=== PATIENT | female | born 1995 | race African-American/Black ===

== ENCOUNTER 2017-06-20 00:48 | Emergency (ER) | payer OTHER ==
[~2017-06-20] VITALS: Ht 177.8 cm; Wt 136.5 kg
[~2017-06-20 00:48] MED LIST: PREN27TA7
[2017-06-20 01:01] VITALS: BP 148/94
== END 2017-06-20 04:30 | disposition left against medical advice (07) ==
LOC: ER 00:48
DX: R51 Headache (principal); H53.8 Other visual disturbances; Z53.21 Procedure and treatment not carried out due to patient leaving prior to being seen by health care provider
CPT/HCPCS: 81025

== ENCOUNTER 2018-10-05 23:03 | Emergency (ER) | payer OTHER ==
[~2018-10-05] VITALS: Ht 177.8 cm; Wt 169.6 kg
[2018-10-05 23:16] VITALS: BP 191/92
[2018-10-06 00:05] LABS: Basophils # (auto) 0.1 uL; Eosinophils # (auto) 0.2 uL; Eosinophils % (auto) 2.5 % (0.0-7.0); Hematocrit 40.7 % (36.0-46.0); Hemoglobin 13.3 g/dL (12.2-16.2); Lymphocytes # (auto) 2.9 uL; Lymphocytes % (auto) 41.7 % (10.0-50.0); Mean Corpuscular Hgb Conc. 32.6 g/dL (32.0-36.0); Mean Corpuscular Volume 82.7 fL (80.0-100.0); Monocytes # (auto) 0.6 uL; Monocytes % (auto) 8.1 % (0.0-12.0); Neutrophils # (auto) 3.3 uL; Neutrophils % (auto) 46.7 % (37.0-80.0); Nucleated Red Blood Cells % 0.1 %; Platelet Count (auto) 227 10^3/uL (140-450); Red Blood Cells 4.93 10^6/uL (4.0-5.20); Red Cell Distribution Width 13.9 % (11.8-14.3)
[2018-10-06 00:16] LABS: Alanine Aminotransferase 24 U/L (13-56); Albumin 3.5 g/dL (3.4-5.0); Anion Gap 8 (5-15); Aspartate Aminotransferase 17 U/L (15-37); BUN/Creatinine Ratio 6.5; Blood Urea Nitrogen 6 mg/dL (7-18); Carbon Dioxide 24 mmol/L (21-32); Chloride 108 mmol/L (98-107); GFR African American 96 mL/min; GFR Non-African American 80 mL/min; Glucose 79 mg/dL (74-106); Potassium 3.9 mmol/L (3.5-5.1); Sodium 140 mmol/L (136-145)
[2018-10-06 00:21] LABS: Alkaline Phosphatase 69 U/L (45-117); Bilirubin, Total 0.2 mg/dL (0.2-1.0); Total Protein 7.7 g/dL (6.4-8.2)
[2018-10-06 00:25] LABS: INR < 0.93 (0.9-1.15); Partial Thromboplastin Time 27.9 sec (23.64-32.05)
== END 2018-10-06 02:07 | disposition left against medical advice (07) ==
LOC: ER 23:08
DX: R07.89 Other chest pain (principal); Z53.21 Procedure and treatment not carried out due to patient leaving prior to being seen by health care provider
CPT/HCPCS: 36415; 71045; 80053; 84484; 85025; 85610; 85730; 93005

== ENCOUNTER 2020-01-13 15:24 | Emergency (ER) | payer OTHER ==
[~2020-01-13] VITALS: Ht 177.8 cm; Wt 194.3 kg
[2020-01-13 16:38] LABS: Urine Bacteria FEW /hpf (None Seen); Urine Blood Negative /uL (Negative); Urine Specific Gravity 1.012 (1.001-1.035); Urine WBC 25 /hpf (0 - 5)
[2020-01-13 17:40] LABS: Basophils # (auto) 0 10 ^3/uL (0-0.2); Basophils % (auto) 0.3 % (0.0-2.0); Eosinophils # (auto) 0.1 10 ^3/uL (0-0.8); Eosinophils % (auto) 2.9 % (0.0-7.0); Hematocrit 39.3 % (36.0-46.0); Hemoglobin 12.7 g/dL (12.2-16.2); Lymphocytes # (auto) 1.5 10 ^3/uL (0.4-5.4); Lymphocytes % (auto) 36.5 % (10.0-50.0); Mean Corpuscular Hemoglobin 26.4 pg (28.0-32.0); Mean Corpuscular Hgb Conc. 32.3 g/dL (32.0-36.0); Mean Corpuscular Volume 81.7 fL (80.0-100.0); Monocytes # (auto) 0.3 10 ^3/uL (0-1.3); Monocytes % (auto) 8.1 % (0.0-12.0); Neutrophils # (auto) 2.1 10 ^3/uL (1.6-8.6); Neutrophils % (auto) 52.2 % (37.0-80.0); Nucleated Red Blood Cells % 0.2 %; Platelet Count (auto) 235 10^3/uL (140-450); Red Cell Distribution Width 14.3 % (11.8-14.3); White Blood Cell 4.1 10^3/uL (4.4-10.8)
[2020-01-13 17:56] LABS: Calcium 8.7 mg/dL (8.5-10.1); Chloride 106 mmol/L (98-107); INR 0.96 (0.9-1.15); Partial Thromboplastin Time 27.7 sec (23.0-31.2); Potassium 3.9 mmol/L (3.5-5.1); Sodium 138 mmol/L (136-145)
[2020-01-13 18:07] LABS: Alanine Aminotransferase 35 U/L (13-56); Albumin 3.6 g/dL (3.4-5.0); Alkaline Phosphatase 72 U/L (45-117); Anion Gap 4 (5-15); Aspartate Aminotransferase 32 U/L (15-37); Bilirubin, Total 0.2 mg/dL (0.2-1.0); Blood Urea Nitrogen 8 mg/dL (7-18); Carbon Dioxide 28 mmol/L (21-32); GFR African American 99 mL/min; GFR Non-African American 82 mL/min; Glucose 93 mg/dL (74-106); Total Protein 7.4 g/dL (6.4-8.2)
[2020-01-13 18:57] VITALS: BP 168/98
== END 2020-01-13 19:05 | disposition home or self-care (01) ==
LOC: ER 15:24
DX: R07.89 Other chest pain (principal); K21.9 Gastro-esophageal reflux disease without esophagitis; N39.0 Urinary tract infection, site not specified; I10 Essential (primary) hypertension
CPT/HCPCS: 36415; 71046; 80053; 81001; 81025; 84484; 85025; 85379; 85610; 85730; 93005

== ENCOUNTER 2020-08-05 12:03 | Emergency (ER) | payer SELFPAY ==
[~2020-08-05] VITALS: Ht 175.3 cm; Wt 167.8 kg
[2020-08-05 12:36] VITALS: BP 178/101
[2020-08-05] MEDS ORDERED: cefTRIAXone 1GM/50ML D5W 50 ML IV ONE ×2 (13:00)
[2020-08-05] MEDS ORDERED: KETOROLAC TROMETH 30 MG/ML 1ML VIAL IV ONE (13:00)
[2020-08-05] MEDS ORDERED: methylPREDNISolone SOD SUCC 125 MG/2 ML VL IV ONE (13:00)
== END 2020-08-05 14:06 | disposition home or self-care (01) ==
LOC: ER 12:03
DX: J03.00 Acute streptococcal tonsillitis, unspecified (principal); E66.01 Morbid (severe) obesity due to excess calories; I10 Essential (primary) hypertension; Z68.43 Body mass index [BMI] 50.0-59.9, adult; Z79.899 Other long term (current) drug therapy
CPT/HCPCS: 87880; 96365; 96375; 99284; J0696; J1885; J2930

== ENCOUNTER 2020-08-06 11:10 | Emergency (ER) | payer SELFPAY ==
[~2020-08-06] VITALS: Ht 175.3 cm; Wt 171.9 kg
[2020-08-06] MEDS ORDERED: methylPREDNISolone SOD SUCC 125 MG/2 ML VL IM ONE (11:45)
[2020-08-06] MEDS ORDERED: cefTRIAXone SOD 1,000 MG VL IM ONE (11:45)
[2020-08-06 11:47] VITALS: BP 159/92
== END 2020-08-06 12:06 | disposition home or self-care (01) ==
LOC: ER 11:10
DX: J03.00 Acute streptococcal tonsillitis, unspecified (principal); I10 Essential (primary) hypertension; Z79.899 Other long term (current) drug therapy
CPT/HCPCS: 96372; 99284; J0696; J2930

== ENCOUNTER 2024-10-01 21:48 | Emergency (ER) | payer MEDICAID ==
[~2024-10-01] VITALS: Ht 180.3 cm; Wt 177.0 kg
[2024-10-01 21:48] VITALS: BP 184/103; PULSE 86; RESP 18; TEMP 98.3; O2SAT 100
[~2024-10-01 21:48] MED LIST changes: +IBUP-1456 PO
--- NOTE | 2024-10-01 23:18 | DVH ---
CLINICAL INDICATION: left wrist pain TECHNIQUE: XY L WRIST 3+ VIEW XRAY Comparison: XY L WRIST 3+ VIEW XRAY on DOS: 06/30/23 FINDINGS/IMPRESSION: : Stabilization pins within the carpal bones without evidence of gross complication. The scaphoid is di minished and disrupted, likely secondary to remote trauma. No definite evidence of acute osseous abnormality. Soft tissues are unremarkable.
[2024-10-02] MEDS ORDERED: IBUP-1456 PO (01:21)
--- NOTE | 2024-10-02 01:22 | ED.PDOC ---
Musculoskeletal HPI Comments 29 year old female presents to ER with complaints of left wrist pain x 4 days. Patient states she had surgery/pins placed to left wrist from a scaphoid fracture at [facility] in June 2023 and x 4 days has been experiencing left wrist pain. Notes that she was suppose to f/u to have the pins removed in left wrist in September 2023 but never did. She rates her current pain an 8/10 to left wrist with intermittent numbness/tingling to all fingers of left hand. Denies any recent falls/injury, swelling, fever or any further symptoms/complaints Chief Complaint: Upper Extremity Time Seen by MD: 22:32 Primary Care Provider: RENE Reviewed Notes: Nurses Notes, Medications, Allergies Allergies: Coded Allergies: NO KNOWN ALLERGIES (Unverified , 05/05/14) Home Meds Active Scripts Ibuprofen (Ibuprofen) 800 Mg Tab, 1 TAB PO TID PRN, #30 TAB 0 Refills Prov:MARC PAYAN 10/02/24 Ibuprofen (Ibuprofen) 800 Mg Tab, 1 TAB PO TID, #30 TAB Prov:ALEXIS MOSQUEDA 06/30/23 Reported Medications Vit W/ Ferrous Fumara () 1 Tab Tab 10/31/12 Information Source: Patient Mode of Arrival: Ambulatory Past Medical History PAST MEDICAL HISTORY: HTN Surgical History (Other): Left wrist surgery/pins placed due to scaphoid fracture in June 2023 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[employer] 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 [facility] 09-13-24 Family History Family History: Unknown Social History Smoker: Non-Smoker Alcohol: Denies ETOH Use Drugs: Marijuana Lives In: Home Constitutional: denies: chills, diaphoresis, fatigue, fever, malaise, sweats, weakness, others EENTM: denies: blurred vision, double vision, ear bleeding, ear discharge, ear drainage, ear pain, ear ringing, eye pain, eye redness, hearing loss, mouth pain, mouth swelling, nasal discharge, nose bleeding, nose congestion, nose pain, photophobia, tearing, throat pain, throat swelling, voice changes, others Respiratory: denies: cough, hemoptysis, orthopnea, SOB at rest, shortness of breath, SOB with excertion, stridor, wheezing, others Cardiovascular: denies: chest pain, dizzy spells, diaphoresis, Dyspnea on exertion, edema, irregular heart beat, left arm pain, lightheadedness, palpitations, PND, syncope, others Gastrointestinal: denies: abdomen distended, abdominal pain, blood streaked bowels, constipated, diarrhea, dysphagia, difficulty swallowing, hematemesis, melena, nausea, poor appetite, poor fluid intake, rectal bleeding, rectal pain, vomiting, others Genitourinary: denies: abnormal vagina bleeding, burning, dyspareunia, dysuria, flank pain, frequency, hematuria, incontinence, pain, , vagina discharge, urgency, others Neurological: reports: others (As stated in HPI) Musculoskeletal: reports: others (As stated in HPI) Integumetry: denies: bruises, change in color, change in hair/nails, dryness, laceration, lesions, lumps, rash, wounds, others Allergic/Immunocompromised: denies: Difficulty Healing, Frequent Infections, Hives, Itching, others Hematologic/Lymphatic: denies: anemia, blood clots, easy bleeding, easy bruising, swollen glands, others Endocrine: denies: excessive hunger, excessive sweating, excessive thirst, excessive urination, flushing, intolerance to cold, intolerance to heat, unexplained weight gain, unexplained weight loss, others Psychiatric: denies: anxiety, bipolar disorder, depression, hopeless, panic disorder, schizophrenia, sleepless, suicidal, others Physical Exam General Appearance: No Apparent Distress, Obese HEENT: PERRL/EOMI Neck: Full Range of Motion, Non-Tender, Normal Respiratory: Chest Non-Tender, Lungs Clear, No Accessory Muscle Use, No Respiratory Distress, Normal Breath Sounds Cardiovascular: No Murmur, No Gallop, Regular Rate/Rhythm Breast Exam: Deferred Gastrointestinal: NOT DONE Genitalia: Deferred Pelvic: Deferred Rectal: Deferred Extremities: Normal capillary refill, Normal range of motion Musculoskeletal : Extremity Location: Wrist (TTP centralized to left wrist noted. Scar noted centralized to left wrist from prior left wrist surgery. No signs of infection noted. Patient able to fully move all fingers of left hand. Pulses intact) Neurologic: Alert, No Motor Deficits, Normal Affect, Normal Mood, No Sensory Deficits Cerebellar Function: Normal Reflexes: Normal Skin: Dry, Normal Color, Warm Peripheral Pulses: 2+ Radial (R), 2+ Radial (L), 2+ Brachial (R), 2+ Brachial (L) Lymphatic: No Adenopathy Was a procedure done? Was a procedure done?: No Sedation Sedation?: No Differential Diagnosis EXT Differential Diagnosis: Cellulitis, Deep Vein Thrombosis, Fracture, Dislocation, Neurovascular injury X-Ray, Labs, Meds, VS Vital Signs Date Time Temp Pulse Resp B/P (MAP) Pulse Ox O2 Delivery O2 Flow Rate FiO2 10/01/24 21:48 98.3 86 18 184/103 (130) 100 98.3 PATIENT: PEGGY SEVERINO CHE YANNEACCT: [id number]: [id number] : 1995 LOC: ER ROOM / BED: / AGE / SEX: 29 / F ADM STATUS: REG ER SERVICE 31 ORDERING PHYSICIAN: MARC PAYAN PROCEDURE(s): LWRI - L WRIST 3+ VIEW XRAY REASON: left wrist pain ORDER NUMBER(s): [id number], ACCESSION NUMBER(s): [id number] CLINICAL INDICATION: left wrist pain TECHNIQUE: XY L WRIST 3+ VIEW XRAY Comparison: XY L WRIST 3+ VIEW XRAY on DOS: 06/30/23 FINDINGS/IMPRESSION: : Stabilization pins within the carpal bones without evidence of gross complication. The scaphoid is diminished and disrupted, likely secondary to remote trauma. No definite evidence of acute osseous abnormality. Soft tissues are unremarkable. ATED BY: WYATT FUENTES MD DICTATED DATE/TIME: 10/01/242314 SIGNED BY: WYATT FUENTES MD SIGNED DATE/TIME: 10/01/242314 CC: Left wrist x-ray reviewed Toradol 60 mg IM ordered Patient neurovascularly intact and reported improvement in symptoms prior to discharge Advised to follow up with PCP and orthopedics in 1-2 days Patient verbalized understanding and agreeable with current plan of care Advised to return to ER immediately if symptoms worsen Images Reviewed?: Images reviewed and evaluated by me Time of 1ST Reevaluation: 01:04 Reevaluation 1ST: N/A Patient Education/Counseling: Diagnosis, Treatment, Prognosis, Need For Follow Up Family Education/Counseling: No Family Present Departure 1 Departure Time of Disposition: 01:20 Impression: Primary Impression: Postoperative pain of extremity Disposition: 01 HOME / SELF CARE / HOMELESS Condition: Stable e-Prescriptions Ibuprofen (Ibuprofen) 800 Mg Tab 1 TAB PO TID PRN, #30 TAB 0 Refills Prov: MARC PAYAN 10/02/24 Discharged With: Friend Critical Care Note Critical Care Time?: No Stability Stability form required: No Heart Score Heart Score: Heart Score Response (Comments) Value History N/A 0 EKG N/A 0 Age N/A 0 Risk Factors N/A 0 Troponin N/A 0 Total 0 MARC PAYAN Oct 02, 2024 01:22
[2024-10-02] MEDS ORDERED: KETOROLAC TROMETH 60MG/2ML VIAL IM ONE (01:30)
== END 2024-10-02 05:05 | disposition home or self-care (01) ==
LOC: ER 21:48
DX: G89.18 Other acute postprocedural pain (principal); F12.90 Cannabis use, unspecified, uncomplicated; I10 Essential (primary) hypertension; Z98.890 Other specified postprocedural states; Z79.1 Long term (current) use of non-steroidal anti-inflammatories (NSAID); Z79.899 Other long term (current) drug therapy
CPT/HCPCS: 73110